=== PATIENT | male | born 1990 | race Caucasian/White ===

== ENCOUNTER 2017-07-08 11:14 | Emergency (ER) | payer OTHER ==
--- NOTE | 2017-07-08 12:37 | XRAY Report ---
EXAM: RIGHT THIRD DIGIT RADIOGRAPHY EXAM DATE: 07/08/2017 11:56 AM. CLINICAL HISTORY: Tablesaw to right middle finger, cut. COMPARISON: None. TECHNIQUE: 3 views. FINDINGS: Bones: Deformity at the distal phalanx of the third finger with oblique defect at the mid to distal a spect along the radial side and a few small calcific fragments within the adjacent soft tissues. No o ther fracture. Joints: No dislocation. Soft Tissues: Soft tissue swelling with open wound at the distal aspect of the third finger. IMPRESSION: 1. Traumatic fracture deformity at the distal phalanx of the third finger with oblique defect at the mid to distal portion along the radial side and a few small calcific fragments within the adjacent so ft tissues. There is also soft tissue swelling with an open wound. No dislocation. [facility] Referring Provider Line: [phone] SITE ID: [id number]
--- NOTE | 2017-07-08 12:51 | ED Physician Documentation ---
PD HPI UPPER EXT INJURY - Stated complaint Stated Complaint: R MIDDLE FINGER LAC - Chief complaint Chief Complaint: Laceration - History obtained from History obtained from: Patient - History of Present Illness Location: Right, Finger (middle) Where injury occurred: Home Timing - onset: Today Timing - details: Abrupt onset Worsened by: Moving, Palpating Associated symptoms: No: Weakness, Numbness, Swelling Contributing factors: No: Anticoagulated Similar symptoms before: Has not had sx before Recently seen: Not recently seen Review of Systems Constitutional: denies: Fever, Chills Nose: denies: Rhinorrhea / runny nose, Congestion Throat: denies: Sore throat Cardiac: denies: Chest pain / pressure, Palpitations Respiratory: denies: Dyspnea, Cough Skin: reports: Laceration (s) Musculoskeletal: reports: Other PD PAST MEDICAL HISTORY - Past Medical History Past Medical History: No - Past Surgical History Past Surgical History: No - Present Medications Home Medications: Ambulatory Orders Medication Instructions Recorded Confirmed No Known Home Medications [No 07/08/17 07/08/17 Known Home Medications] - Allergies Allergies/Adverse Reactions: Allergies Allergy/AdvReac Type Severity Reaction Status Date / Time No Known Drug Allergies Allergy Verified 07/08/17 11:24 - Social History Does the pt smoke?: Yes Smoking Status: Current every day smoker Does the pt drink ETOH?: No Does the pt have substance abuse?: No - Immunizations Immunizations are current?: Yes PD ED PE NORMAL - General General: Alert and oriented X 3, Well developed/nourished - HEENT HEENT: Atraumatic, Moist mucous membranes - Neck Neck: Supple, no meningeal sign, No adenopathy - Cardiac Cardiac: RRR, No murmur - Respiratory Respiratory: Clear bilaterally - Derm Derm: Normal color, Warm and dry - Extremities Extremities: Other (right middle finger with stellate lac at tip, distal to the nailbed.) - Neuro Neuro: Alert and oriented X 3, No motor deficit, No sensory deficit, Normal speech Results - Vitals Vitals: Vital Signs - 24 hr 07/08/17 07/08/17 07/08/17 11:20 12:43 14:18 Temperature 36.7 C 37.1 C 36.9 C Heart Rate 96 67 66 Respiratory 18 18 18 Rate Blood Pressure 148/110 H 147/75 H 136/66 H O2 Saturation 97 96 98 Oxygen O2 Source Room air - Rads (name of study) finger Radiology: Prelim report reviewed, EMP read contemporaneously (distal tuft fracture without FB.) Procedures - Laceration (location) right iddle finge Length in cm: 1.8 Wound type: Stellate, Into subcut fat, Into muscle, Clean Neurovascular status: Sensory intact, Motor intact, Vascular intact Anesthesia: LET Wound Preparation: Irrigated copiously NS, Wound edges modified Deep layer closure: size #-0 - enter number (4-0) Other: Patient tolerated well, No complications, Neurovascular intact, Dressing applied, Tetanus booster given Complexity: Simple PD MEDICAL DECISION MAKING - ED course Complexity details: reviewed results (tuft fracture but not to DIP. Should heal okay without special treatment. The suturing of the fingertip left some contour defect. Nailbed and nychial fold intact. ), considered differential, d/w patient Departure - Departure Disposition: 01 Home, Self Care Clinical Impression: Open fracture of tuft of distal phalanx of finger Finger laceration Qualifiers: Encounter type: initial encounter Finger: middle finger Damage to nail status: with damage Foreign body presence: without foreign body Laterality: right Qualified Code(s): S61.312A - Laceration without foreign body of right middle finger with damage to nail, initial encounter Condition: Stable Record reviewed to determine appropriate education?: Yes Instructions: ED Laceration Hand Comments: It is okay to wash and shower. Clean off the wound twice a day with soap and water, or peroxide and water. Apply some antibiotic ointment to it to keep it moist. Also to watch for signs of infection such as purulence, redness or increasing pain. Return to your primary care or the ER at the specified time for suture removal. Suture removal 10-12 days. Tylenol or ibuprofen if needed for pain. Protect the finger while its healing when doing activities. Use Band -Aid or such. you could use a finger splint if needed. Discharge Date/Time: 07/08/17 14:26
[2017-07-08] MEDS ORDERED: LIDOCAINE 2% 10 ML MDV SUBQ STA (12:52)
[2017-07-08 14:18] VITALS: BP 136/66
== END 2017-07-08 14:26 | disposition home or self-care (01) ==
LOC: ED 11:14
DX: S61.312A Laceration without foreign body of right middle finger with damage to nail, initial encounter (principal); S62.632A Displaced fracture of distal phalanx of right middle finger, initial encounter for closed fracture; W29.8XXA Contact with other powered hand tools and household machinery, initial encounter; F17.200 Nicotine dependence, unspecified, uncomplicated
CPT/HCPCS: 12001; 73140; 99282; 99283